=== PATIENT | male | born 1940 | race Caucasian/White ===

== ENCOUNTER → 2019-12-17 09:02 | Outpatient (BNVA) | payer MEDICARE, SELFPAY | PROVIDERS: Family Provider Physician Assistant; PCP Physician Assistant; Visit Provider Urology | DX: N42.1 Congestion and hemorrhage of prostate (principal); R97.20 Elevated prostate specific antigen [PSA]; R39.89 Other symptoms and signs involving the genitourinary system | CPT/HCPCS: 81001 ==

== ENCOUNTER 2021-03-30 11:02 | Outpatient (CLI) | payer MEDICARE, SELFPAY ==
--- NOTE | 2021-03-30 11:12 | XRR_ITS ---
PROCEDURE INFORMATION: Exam: XR Left Knee Exam date and time: 03/30/2021 11:22 AM Age: 80 years old Clinical indication: Pain; Bilateral; Prior surgery; Surgery type: Bilat knee; Additional info: Chronic knee pain TECHNIQUE: Imaging protocol: XR Left knee. Views: 3 views. COMPARISON: CR Knee 3 views, LEFT* [id number] 11/02/2018 12:39 PM FINDINGS: Bones/joints: No fracture, dislocation or other acute abnormalities are seen. Chronic degenerative changes are present with small osteophyte formation on the femoral condyles and tibial plateau. There is joint space narrowing. There is chronic spurring on the patella and calcification in the quadriceps tendon. . Soft tissues: Normal. XR/XR knee LT 3V* [id number] IMPRESSION: 1. 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 2. No acute bony abnormality
--- NOTE | 2021-03-30 11:12 | XRR_ITS ---
PROCEDURE INFORMATION: Exam: XR Right Shoulder Exam date and time: 03/30/2021 11:40 AM Age: 80 years old Clinical indication: Pain; Shoulder; Bilateral; Additional info: Chronic shoulder pain TECHNIQUE: Imaging protocol: XR Right shoulder. Views: 2 or more views. COMPARISON: CR Shoulder 2+ views RIGHT* [id number] 11/02/2018 12:39 PM FINDINGS: Bones/joints: No fracture, dislocation or other acute bone or joint abnormalities are seen. Chronic degenerative changes are present with joint space narrowing sclerosis and osteophytes. The humeral head is high-riding in relation to the glenoid consistent with chronic rotator cuff tear and degeneration. Soft tissues: Normal. XR/XR shoulder RT min 2V* [id number] IMPRESSION: Prominent chronic degenerative disease. No acute abnormality.
--- NOTE | 2021-03-30 11:12 | XRR_ITS ---
PROCEDURE INFORMATION: Exam: XR Left Shoulder Exam date and time: 03/30/2021 11:38 AM Age: 80 years old Clinical indication: Pain; Shoulder; Bilateral; Additional info: Chronic shoulder pain TECHNIQUE: Imaging protocol: XR Left shoulder. Views: 2 or more views. COMPARISON: CR Shoulder 2+ views LEFT* [id number] 11/02/2018 12:39 PM FINDINGS: Bones/joints: No fracture or other acute abnormalities are seen. Prominent chronic degenerative changes are present with joint space narrowing sclerosis and osteophytes. The humeral head is high-riding in relation to the glenoid consistent with chronic rotator cuff tear and degeneration. Soft tissues: Normal. XR/XR shoulder LT min 2V* [id number] IMPRESSION: Prominent chronic degenerative disease. No acute abnormality.
--- NOTE | 2021-03-30 11:12 | XRR_ITS ---
PROCEDURE INFORMATION: Exam: XR Right Knee Exam date and time: 03/30/2021 11:49 AM Age: 80 years old Clinical indication: Pain; Knee; Bilateral; Prior surgery; Additional info: Chronic knee pain TECHNIQUE: Imaging protocol: XR Right knee. Views: 3 views. COMPARISON: CR Knee 3 views, RIGHT* [id number] 11/02/2018 12:39 PM FINDINGS: Tubes, catheters and devices: An orthopedic wire from previous quadriceps and patellar tendon repair is present with multiple wire fractures. This is unchanged since old examination. Bones/joints: Prominent chronic degenerative changes are present with joint space narrowing sclerosis and osteophytes especially in the femoral patellar joint. There is a joint effusion. No recent fracture or other acute abnormalities are seen. Soft tissues: Normal. XR/XR knee RT 3V* [id number] IMPRESSION: 1. Prominent chronic degenerative osteoarthritis. 2. No acute bony abnormalities are seen. 3. Joint effusion
== END 2021-03-30 11:03 | disposition home or self-care (01) ==
PROVIDERS: Visit Provider Family Medicine
DX: M25.561 Pain in right knee (principal); M25.562 Pain in left knee; M25.512 Pain in left shoulder; M25.511 Pain in right shoulder; M17.0 Bilateral primary osteoarthritis of knee; M25.461 Effusion, right knee
CPT/HCPCS: 73030; 73562

== ENCOUNTER → 2022-02-18 08:56 | Outpatient (BNVA) | payer MEDICARE, SELFPAY | PROVIDERS: Visit Provider Urology | DX: R97.20 Elevated prostate specific antigen [PSA] (principal) | CPT/HCPCS: 81003 ==

== ENCOUNTER 2022-08-25 12:11 | Outpatient (CLI) | payer MEDICARE, SELFPAY ==
[2022-08-25 13:46] LABS: Prostate Specific AG Urology 7.96 ng/mL (0-4)
== END 2022-08-25 12:12 | disposition home or self-care (01) ==
LOC: LAB 12:18
PROVIDERS: PCP Family Medicine; Visit Provider Urology
DX: R97.20 Elevated prostate specific antigen [PSA] (principal); N42.1 Congestion and hemorrhage of prostate
CPT/HCPCS: 36415; 81003; 84153; 99213

== ENCOUNTER → 2022-12-28 14:14 | Outpatient (BNVA) | payer MEDICARE, SELFPAY | PROVIDERS: PCP Family Medicine; Visit Provider Internal Medicine | DX: R06.02 Shortness of breath (principal); I49.3 Ventricular premature depolarization; Z87.891 Personal history of nicotine dependence | CPT/HCPCS: 99204 ==

== ENCOUNTER → 2023-01-19 15:13 | Outpatient (BNVA) | payer MEDICARE, SELFPAY | PROVIDERS: PCP Family Medicine; Visit Provider Urology | DX: N42.1 Congestion and hemorrhage of prostate (principal); R97.20 Elevated prostate specific antigen [PSA] | CPT/HCPCS: 51798; 52000; 81003; 99213 ==

== ENCOUNTER 2023-01-25 06:01 | Outpatient (CLI) | payer MEDICARE, SELFPAY ==
--- NOTE | 2023-01-25 06:15 | USCV_ITS ---
Andrez Velasquez Age: 82 Gender: M : 1940 Exam Date: 01/25/2023 06:15 Ordering Phys: Marcos Johns M.D ([email or web address]) Technologist: DAISHA Exam Location: [facility] [place] Indication: SHORTNESS OF BREATH BP: 150 / 70 HR: 73 Rhythm: Sinus Technical Quality: Adequate MEASUREMENTS (Male / Female) Normal Values 2D ECHO LVOT Diameter 2.0 cm LV Ejection Fraction MOD 2C 54.3 % LV Ejection Fraction 2C AL 58.8 % LA Diameter 3.8 cm LA Width 3.4 cm LA Height 5.5 cm RA Width 3.8 cm RA Height 5.1 cm Aorta at Sinotubular Diameter 2.5 cm IVC Diameter 1.3 cm M-MODE Aortic Annulus Diameter 3.0 cm LA Ao Ratio MM 1.2 MV E Point Septal Separation 0.8 cm DOPPLER AV Peak Velocity 150.0 cm/s LVOT Peak Velocity 108.0 cm/s AV Area Cont Eq vti 2.4 cm squared AV Area Cont Eq pk 2.2 cm squared MV Peak Velocity 93.0 cm/s MV Area PHT 2.3 cm squared Mitral E to A Ratio 0.7 MV E' Velocity 32.5 cm/s Mitral E to MV E' Ratio 8.0 Mitral E to LV E' Lateral Ratio 7.1 Mitral E to LV E' Septal Ratio 9.2 TR Peak Velocity 142.7 cm/s TR Peak Gradient 8.1 mmHg TR Mean Velocity 119.3 cm/s TR Mean Gradient 5.9 mmHg TR Velocity Time Integral 44.2 cm TV Peak E Velocity 43.0 cm/s Right Atrial Pressure 3.0 mmHg Pulmonary Artery Systolic Pressu 11.1 mmHg PV Peak Velocity 105.0 cm/s RV Acceleration Time 0.1 s RV Ejection Time 0.3 s RV AcT/ET 0.5 FINDINGS Left Ventricle Left ventricle is normal size. LV systolic function is normal with EF 50 to 55%. No regional wall motion abnormalities are seen. Grade 1 diastolic dysfunction. Right Ventricle Normal in size and function Right Atrium Normal in size Left Atrium Normal in size Mitral Valve Mild mitral regurgitation. Aortic Valve Grossly normal. No significant stenosis. Mild aortic regurgitation. Tricuspid Valve Trace tricuspid regurgitation. Pulmonary artery systolic pressure is normal Pulmonic Valve Not well visualized Pericardium Normal Aorta Normal in size IVC Appears to be normal CONCLUSIONS LV systolic function is normal with EF of 50 to 55%. Grade 1 diastolic dysfunction Mild mitral regurgitation Mild aortic regurgitation Trace tricuspid regurgitation No comparison studies are available Marcos Johns MD (Electronically Signed) Final Date: 02 February 2023 17:04 S
== END 2023-01-25 06:02 | disposition home or self-care (01) ==
LOC: RAD 06:02
PROVIDERS: PCP Family Medicine; Visit Provider Internal Medicine
DX: R06.02 Shortness of breath (principal); I08.3 Combined rheumatic disorders of mitral, aortic and tricuspid valves
CPT/HCPCS: 93306; 99204

== ENCOUNTER → 2023-04-03 14:54 | Outpatient (BNVA) | payer MEDICARE, SELFPAY | PROVIDERS: PCP Family Medicine; Visit Provider Urology | DX: N21.0 Calculus in bladder (principal); N42.1 Congestion and hemorrhage of prostate; R97.20 Elevated prostate specific antigen [PSA] | CPT/HCPCS: 51798; 81003; 99213 ==

== ENCOUNTER → 2023-05-31 14:03 | Outpatient (BNVA) | payer MEDICARE, SELFPAY | PROVIDERS: PCP Family Medicine; Visit Provider Internal Medicine | DX: R06.02 Shortness of breath (principal); I49.3 Ventricular premature depolarization; Z87.891 Personal history of nicotine dependence | CPT/HCPCS: 99214 ==

== ENCOUNTER 2023-06-21 06:29 | Outpatient (CLI) | payer MEDICARE, SELFPAY ==
[2023-06-21 06:51] VITALS: BMI 34.9
--- NOTE | 2023-06-21 08:10 | ECG_ITS ---
[facility] Test Date: 2023-06-21 Pat Name: Andrez Velasquez Department: Room: Gender: Male Bee Raiser: : 1940 Requested By: Marcos Johns Order Number: [id number] Hai MD: Marcos Johns M.D. Interpretive Statements NAME OF STUDY: LEXISCAN SESTAMIBI STRESS TEST INDICATION: [Chest Pain] Procedure: At the baseline, the blood pressure was 160/91mmHg with a heart rate of 60 bpm. The electrocardiogram showed normal sinus rhythm, normal axis with normal ST and T's. The Lexiscan was infused over a period of 20 seconds. A total of 0.4 mg of Lexiscan was infused. The stress phase was continued for a total of 5 minutes. Heart rate was at the end of stress phase was 74 bpm and a blood pressure of 170/97 mmHg. The EKG at the peak infusion revealed normal sinus rhythm with no significant ST-T wave changes. Sestamibi was injected 20 seconds after the Lexiscan infusion. Blood pressure at the end of recovery phase was 170/100mmHg with a heart rate of 71 bpm. Conclusion: 1. Normal EKG response to Lexiscan infusion 2. No Lexiscan induced chest pain or cardiac arrhythmia. 3. Normal blood pressure and heart rate response. 4. Sestamibi/sestamibi perfusion scan pending; see separate report. Electronically Signed On 07-10-2023 12:12:58 CDT by Marcos Johns M.D. [id number]
--- NOTE | 2023-06-21 08:10 | NMCV_ITS ---
NM mustapha perf SPECT r/s* [id number] Andrez Velasquez Age: 82 Gender: M : 1940 Exam Date: 06/21/2023 08:05 Ordering Phys: Marcos Johns M.D ([email or web address]) Technologist: DANITA Sandoval Exam Location: [facility] Indications: CHEST PAIN, SHORTNESS OF BREATH STRESS TEST Please see separate stress test report in [facility] for full findings IMAGE PROTOCOL Rest/Stress 1 Lexiscan Day Radiopharmaceutical Dose (mCi) Administration Site Administered by Rest: Tc-99m 10.8 IV DANITA Brito Sestamibi Stress:Tc-99m 32.4 IV DANITA Brito Sestamibi Rest: 21-Jun-2023 60 Discovery 630 Stress: 21-Jun-2023 30 Discovery 630 0.4mg Lexiscan. Supine position only as patient was unable to lay prone. SPECT RESULTS Technical Quality: Excellent Raw Data Analysis: Normal Image Corrections: No attenuation or motion correction applied Summed Stress Score: 1 Summed Rest Score: 5 Summed Difference Score: 1 PERFUSION FINDINGS There is a very small sized reversible perfusion defect noted in septal wall. This is consistent with very small sized area of ischemia in LAD territory. Attenuation artifact can not be ruled out. FUNCTIONAL RESULTS (calculated via Gated SPECT) Stress Image LV EF (%): 64 Stress EDV (mL):107 TID: 1.07 Stress ESV (mL):39 FUNCTIONAL FINDINGS: There is normal left ventricular systolic function. IMPRESSIONS 1. Very small area of ischemia noted in the LAD territory. Attenuation artifact can not be ruled out. Clinical correlation is required. 2. LV systolic function is normal Marcos Johns MD (Electronically Signed) Final Date: 24 June 2023 11:57 S
[2023-06-21] MEDS: regadenoson 0.4 Mg/5 ml Syringe IVP (08:39)
[2023-06-21 08:59] VITALS: BP 170/100; PULSE 71
== END 2023-06-21 06:30 | disposition home or self-care (01) ==
PROVIDERS: PCP Family Medicine; Visit Provider Internal Medicine
DX: R07.9 Chest pain, unspecified (principal); R06.02 Shortness of breath
CPT/HCPCS: 36415; 78452; 93017; 96374; A9500; J2785